=== PATIENT | male | born 1945 | race Caucasian/White ===

== ENCOUNTER 2017-10-11 08:21 | Day surgery (SDC) | payer MEDICARE, OTHER ==
[2017-10-11] MEDS ORDERED: Lactated Ringers 1,000 ML IV SCH (08:30)
[2017-10-11] MEDS ORDERED: Propofol 200 MG/20 ML SDV IV ONE (09:25)
--- NOTE | 2017-10-11 10:10 | PCM.OPNOTE ---
- General Post-Op/Procedure Note Date of Surgery/Procedure: 10/11/17 Operative Procedure(s): c scope with biopsy Findings: transverse colon polyps x3 descending colon polyp x2 sigmoid colon polyp x1 Pre Op Diagnosis: history of colon polyp Post-Op Diagnosis: transverse colon polyps x3. descending colon polyp x2. sigmoid colon polyp x1 [place] [facility] [place] Surgeon: Luis Alberto Scott Anesthesia Provider: Teresa Perez Pathology: transverse colon polyps x3 descending colon polyp x2 sigmoid colon polyp x1 Complications: None Condition: Good Free Text/Narrative:: see dictation
--- NOTE | 2017-10-11 10:59 | OR ---
DATE OF OPERATION: 10/11/2017 SURGEON: Luis Alberto Scott MD PROCEDURE PERFORMED: Colonoscopy with hot loop and cold forceps biopsy. PREOPERATIVE DIAGNOSIS: Personal history of colon polyps. POSTOPERATIVE DIAGNOSES: Proximal transverse colon polyps x2, distal transverse colon polyp x1, descending colon polyp x2, and sigmoid polyp by x1. INDICATIONS FOR PROCEDURE: This is a 72-year-old white male who presents for a followup colonoscopy, has a personal history of colon polyps. He was offered and accepted same. DESCRIPTION OF OPERATION: After an excellent IV sedation was administered, digital rectal exam was performed. No marked abnormality was noted. The prep was good. The following findings were noted: Ascending colon and cecum, unremarkable. Transverse colon at the proximal transverse colon, two flat sessile lesions biopsied with hot loop snare and retrieved and submitted in one container. Distal transverse colon, colon polyp biopsied with cold biopsy forceps and sent for permanent. Descending colon; colon polyp x2, biopsied with cold loop snare and sent for permanent. Sigmoid colon, large polypoid lesion, biopsied with the hot loop snare and sent for permanent. Colon was deflated. Scope was removed. The patient tolerated procedure well, and was taken to recovery in good condition. /[id number] /MODL
== END 2017-10-11 11:06 | disposition home or self-care (01) ==
LOC: FB.SDS 08:21
PROVIDERS: ATTEND Surgery
DX: Z12.11 Encounter for screening for malignant neoplasm of colon (principal); D12.3 Benign neoplasm of transverse colon; D12.4 Benign neoplasm of descending colon; D12.5 Benign neoplasm of sigmoid colon; E78.2 Mixed hyperlipidemia; Z86.010 Personal history of colon polyps; Z79.82 Long term (current) use of aspirin; Z79.899 Other long term (current) drug therapy; Z87.891 Personal history of nicotine dependence
CPT/HCPCS: 00810; 45380; 45385; 88305; J2704; J7120

== ENCOUNTER 2018-12-19 06:59 | Day surgery (SDC) | payer MEDICARE, OTHER ==
[2018-12-19] MEDS ORDERED: Midazolam 1 MG/ML 2 ML SDV IV ONE (07:00)
[2018-12-19] MEDS ORDERED: Propofol 200 MG/20 ML SDV IV ONE (07:00)
[2018-12-19] MEDS ORDERED: Lactated Ringers 1,000 ML IV SCH (07:15)
--- NOTE | 2018-12-19 09:20 | PCM.OPNOTE ---
- General Post-Op/Procedure Note Date of Surgery/Procedure: 12/19/18 Operative Procedure(s): c scope with bx Findings: descending colon polyp Pre Op Diagnosis: hx of colon polyps Post-Op Diagnosis: descending colon polyp Anesthesia Technique: MAC Primary Surgeon: Luis Alberto Scott Anesthesia Provider: Florence Aleman Pathology: colon polyp Complications: None Condition: Good Free Text/Narrative:: see dictation
--- NOTE | 2018-12-19 09:29 | PREOP ---
ADMISSION DATE: 12/19/2018 CHIEF COMPLAINT: History of multiple adenomatous polyps. HISTORY OF PRESENT ILLNESS: This is a 73-year-old white male who, in September 2017, underwent a colonoscopy and had multiple colon polyps removed, a total of six. Greater than four were adenomatous. He presents now for followup colonoscopy. MEDICATIONS: 1. Lipitor 40 mg daily. 2. Valtrex 500 mg two times a day. 3. Refresh eye drops 2 to 3 drops both eyes one time in the morning. 4. Flaxseed oil 1000 mg capsule daily. 5. Garlic 1000 mg capsule daily. 6. Lutein 20 mg capsule daily. 7. Vitamin D3 1000 units daily. 8. Multivitamin one capsule daily. SOCIAL HISTORY: He is a former smoker. Has an occasional drink. FAMILY HISTORY: Significant for diabetes, cataracts, heart disease, osteoarthritis. PAST MEDICAL HISTORY: Significant for the following: History of colon polyps, hemangioma of the skin, bladder cancer, hyperlipidemia, macular degeneration, osteoarthritis, sleep apnea. PAST SURGICAL HISTORY: Significant for cataract, total knees bilateral, colonoscopy, laminectomy, hemorrhoid surgery, arthrodesis, and cystoscopy. REVIEW OF SYSTEMS: Negative with regard to generalized symptoms, HEENT, cardiac, respiratory, GI, genitourinary, musculoskeletal, and neurologic. PHYSICAL EXAMINATION: VITAL SIGNS: Reviewed. He is stable, afebrile. HEENT: Grossly within normal limits. LUNGS: Clear to auscultation. HEART: Had a regular rate and rhythm. ABDOMEN: Soft, nontender. ASSESSMENT: History of multiple adenomatous polyps. PLAN: Colonoscopy. INFORMED CONSENT: Procedure and risks explained to the patient to include bleeding, perforation, and infection. The patient expresses understanding, and he asked us to proceed. /[id number] /MODL
--- NOTE | 2018-12-19 14:33 | OR ---
DATE OF OPERATION: 12/19/2018 SURGEON: Luis Alberto Scott MD PROCEDURE PERFORMED: Colonoscopy with cold forceps biopsy. PREOPERATIVE DIAGNOSIS: Personal history of multiple colon polyps. POSTOPERATIVE DIAGNOSIS: Polyp of descending colon. INDICATIONS FOR PROCEDURE: This 73-year-old white male underwent a scope in September 2017, had more than four adenomatous polyps removed. He presents now for followup endoscopy. DESCRIPTION OF PROCEDURE: After an excellent IV sedation was administered, digital rectal exam was performed. Flexible colonoscope was advanced to the cecum without difficulty. The prep was excellent. The following findings were noted. Ascending colon, unremarkable. Transverse colon, unremarkable. Descending colon, a small polypoid lesion, biopsied with cold biopsy forceps and sent for permanent. Sigmoid and rectum, unremarkable. Results by letter. /[id number] /MODL
== END 2018-12-19 09:40 | disposition home or self-care (01) ==
LOC: FB.SDS 06:59
PROVIDERS: ATTEND Surgery
DX: D12.4 Benign neoplasm of descending colon (principal); E78.5 Hyperlipidemia, unspecified; Z87.891 Personal history of nicotine dependence; Z86.010 Personal history of colon polyps; Z79.899 Other long term (current) drug therapy; Z98.890 Other specified postprocedural states
CPT/HCPCS: 00811 ×2; 45380; 88305; J2250; J2704; J7120